=== PATIENT | female | born 1950 | race Caucasian/White ===

== ENCOUNTER → 2017-04-03 | Outpatient (CLI) | payer MEDICARE, OTHER ==
[~2017-04-03] MED LIST: ALENDRONATE SOD70 MG PO; ALPRAZOLAM PO; BACLOFEN10 MG PO; BACTRIM DS TABL1 TAB PO; BENZONATATE PO; BUSPAR PO; COUMADIN PO; CYMBALTA30 MG PO; FLEXERIL PO; FLONASE16 GM; GLYNASE PO; KLOR-CON PO; LANTUS100 U/ML SUBQ; LASIX PO; LIPITOR PO; LIPITOR40 MG PO; LISINOPRIL10 MG PO; LOPRESSOR PO; MACROBID 100 M100 MG PO; NOVOLOG100 U/ML; PHENERGAN PO; PROTONIX PO; SEROQUEL PO; ZANAFLEX PO; ZESTORETIC 10/11 TAB PO; ZOCOR PO; ZOLOFT PO
--- NOTE | ~2017-04-03 | MY11 ---
[facility] A Service of [facility] / [facility] RADIOLOGY TEXT RESULTS PATIENT: TAURUS MAY LOCATION: [facility] : 46 UNIT #: [id number] AGE: [address]: Anthony Razo MD SEX: F ORDER DR: [id number] [id number] P MR#: [id number] Acc #: [id number] NAME: TAURUS MAY : 1950 SEX: F STUDY DATE/TIME: 04/03/2017 14:31 UNIT: [facility] ROOM: STUDY DESCRIPTION: MY Mammogram Screening Dig [facility] Attending Physician: Anthony Razo M.D. Ordering Physician: Anthony Razo M.D. Primary Care Physician: Anthony Razo M.D. MEDICAL IMAGING REPORT This report is preliminary unless electronic signature is present. EXAM Digital screening mammogram 04/03/2017 HISTORY 66-year-old woman, family history of breast cancer in 2 cousins, ovarian cancer in mother. Patient indicates pain comes and goes upper outer quadrant right breast. Annual screen. COMPARISON STUDIES Comparison mammograms date to 01/04/2008 with most recent 03/20/2015. FINDINGS Digital imaging of each breast was completed utilizing screening protocol. Review includes FDA-approved CAD device. Breast parenchyma is moderately dense and heterogeneous with subareolar duct prominence bilaterally. There are 3 small groupings of microcalcifications in the left breast. These have benign characteristics and are stable at this time. There is no interval occurring breast mass. There are no suspicious microcalcifications at this time and I see no architectural deformity. IMPRESSION Benign mammogram. Annual screening recommended. BIRADS II Patients over the age of 40 are entered into a reminder system with target due date for the next mammogram. A result letter will also be sent to the patient. BIRADS: 2 - Benign finding Dictated by... Donovan Whitaker M.D. THIS IS AN ELECTRONICALLY VERIFIED REPORT [facility] A Service of [facility] / [facility] RADIOLOGY TEXT RESULTS PATIENT: TAURUS MAY LOCATION: [facility] #: [id number] : 46 UNIT #: [id number] AGE: [address]: Anthony Razo MD SEX: F ORDER DR: Donovan Whitaker M.D. at 04/04/2017 1:24 PM Silvina TD: 04/03/2017 17:31 JOB #: [id number] MEDICAL IMAGING REPORT Page 1 of 1
[2017-04-03 14:19] LABS: INR 1.6; PROTHROMBIN TIME (PATIENT) 17.7 SECONDS (9.5-12.4)
[2017-04-03 14:25] LABS: BASOPHIL# 0.1 X10e3 (0-0.3); BASOPHIL% 0.7 % (0-2.5); EOSINOPHIL# 0.8 X10e3 (0-0.7); EOSINOPHIL% 5.6 % (0.0-7.0); HEMATOCRIT 34.8 % (35.0-45.0); HEMOGLOBIN 11.1 gm/dL (12.0-16.0); LYMPHOCYTE# 4.8 X10e3 (1.0-3.5); LYMPHOCYTE% 33.9 % (17.0-45.0); MEAN CELL VOLUME 90.2 FL (83-96); MEAN CORPUSCULAR HEMOGLOBIN 28.7 PG (28-34); MEAN CORPUSCULAR HGB CONC 31.8 g/dL (30-36); MEAN PLATELET VOLUME 8.4 FL (6.5-11.5); MONOCYTE# 1.4 X10e3 (0-1.0); MONOCYTE% 9.8 % (3.0-12.0); NEUTROPHIL# 7.1 X10e3 (1.5-7.1); PLATELET COUNT 334 X10e3 (140-420); RED BLOOD COUNT 3.86 X10e (3.90-5.30); RED CELL DISTRIBUTION WIDTH 15.1 % (11.0-15.5); WHITE BLOOD COUNT 14.1 X10e3 (4.0-10.5)
[2017-04-03 14:32] LABS: BUN/CREATININE RATIO 18.88; CALCIUM SERUM 9.3 mg/dL (8.4-10.2); CREATININE SERUM 0.9 mg/dL (0.6-1.4); GLOM FILT RATE Estimated 65.7 mL/min (>60); POTASSIUM 4.2 mmol/L (3.5-5.1)
[2017-04-03 14:35] LABS: DIFF IND NO
[2017-04-03 21:02] LABS: CREATININE,RANDOM URINE 76 mg/dL; TOTAL PROTEIN,RANDOM URINE 17 mg/dl (<10)
== END | disposition home or self-care (01) ==
LOC: SMAM 03-24 11:45
PROVIDERS: Internal Medicine Allergy & Immunology
DX: Z12.31 Encounter for screening mammogram for malignant neoplasm of breast (principal); E11.9 Type 2 diabetes mellitus without complications; E78.00 Pure hypercholesterolemia, unspecified; E03.9 Hypothyroidism, unspecified; I10 Essential (primary) hypertension; Z80.3 Family history of malignant neoplasm of breast
CPT/HCPCS: 36415; 80048; 80061; 82570; 83036; 84156; 84443; 85025; 85610; G0202